=== PATIENT | female | born 1970 | race Caucasian/White ===

== ENCOUNTER 2018-08-07 12:50 | Emergency (ER) | payer OTHER, SELFPAY ==
[2018-08-07 12:51] VITALS: BP 116/80; PULSE 96; RESP 18; TEMP 36.6; O2SAT 97; BMI 27.3
--- NOTE | 2018-08-07 13:01 | RAD_ITS ---
STUDY: X-RAY - SACRUM/COCCYX REASON FOR EXAM: Female, 47 years old. Pain following a fall. TECHNIQUE: 3 view(s) of the sacrum and coccyx were obtained. COMPARISON: None. FINDINGS: Normal bilateral sacroiliac joints. Normal visualized sacral ala and fused sacral bodies. There is an anterior angulation of the coccygeal segments. Normal coccygeal segments. Degenerative changes of the symphysis pubis. The presacral soft tissue structures are unremarkable. RAD/Sacrum-Coccyx min 2 Views IMPRESSION: Normal x-rays of the sacrum and coccyx. Electronically Signed: Bernardo Barahona MD at 14:03 EST , Service support ,
--- NOTE | 2018-08-07 13:02 | ED.VISSUMM ---
- ER Visit Summary Date of Service: 08/07/18 Chief Complaint: Fall History of Present Illness: The patient is a 47 F slipped on concrete steps 1-1/2 hours ago and landed directly on her tailbone. She did not hit her head or lose consciousness. She denies any other injuries. She has moderate pain, worse with palpation. Physical Examination: Mild tenderness over the coccyx only. Overlying skin looks normal. No other back tenderness noted. Normal neurologic exam. Test Results: Coccyx x-rays negative for acute fracture Emergency Department Course and Treatment: Coccyx x-rays are negative. Pain was addressed. She looks well. No other injuries. Follow-up as needed. Treatment Plan: Disposition: Home stable Impression: Initial encounter coccyx contusion This note was generated with [employer] dictation software. It may contain incorrect words, spelling, and punctuation that were not noted in review of the chart prior to signing ED Disposition - Plan for ED Patient: Instructions: ED Contusion Sacrum Coccyx Prescriptions: Naproxen [Naprosyn] 500 mg PO BID #20 tablet Referrals: Ricky Rizzo MD [STAFF PHYSICIAN] -
[2018-08-07] MEDS: Naproxen 500 MG Tablet PO (13:07)
[2018-08-07 14:14] VITALS: BP 121/74; PULSE 78; RESP 17; O2SAT 98
== END 2018-08-07 14:15 | disposition home or self-care (01) ==
LOC: ED 13:07
PROVIDERS: Emergency Provider Emergency Medicine
DX: S30.0XXA Contusion of lower back and pelvis, initial encounter (principal); W01.198A Fall on same level from slipping, tripping and stumbling with subsequent striking against other object, initial encounter; Y93.9 Activity, unspecified; Y92.9 Unspecified place or not applicable; Y99.9 Unspecified external cause status; Z72.0 Tobacco use
CPT/HCPCS: 72220; 99283

== ENCOUNTER 2020-11-07 20:51 | Emergency (ER) | payer SELFPAY ==
[2020-11-07] VITALS (7 sets, daily range): BP systolic 123–128; BP diastolic 80–83; PULSE 72–86; RESP 18–24; TEMP 36.8; O2SAT 91–95; BMI 27.8
--- NOTE | 2020-11-07 21:04 | EKG12_ITS ---
Test Reason : SOB Blood Pressure : / mmHG Vent. Rate : 076 BPM Atrial Rate : 076 BPM P-R Int : 140 ms QRS Dur : 070 ms QT Int : 384 ms P-R-T Axes : 081 042 071 degrees QTc Int : 432 ms Normal sinus rhythm Normal ECG Confirmed by SERGO GARCIA, CAITLIN ([id number]), assignment desk editor STEFANI RODRIGUES ([id number]) on 11/08/2020 1:04:58 PM Referred By: CL Confirmed By:CAITLIN TROTTER MD
--- NOTE | 2020-11-07 21:11 | ED.RN ---
NO OLD EKGS IN MUSE
--- NOTE | 2020-11-07 21:17 | ED.VIS.DYS ---
HPI History of Present Illness Chief Complaint: Shortness of Breath Narrative Narrative: 50-year-old female presents with concern for cough and shortness of breath. States is been worsening over the past 1 week. States the cough is productive of yellow sputum. Denies any other constitutional symptoms. Denies chest pain, nausea, vomiting, abdominal pain. No sick contacts. Patient is a heavy smoker. PFSH PFSH no medical history Home Medications albuterol sulfate [Ventolin HFA] 1 - 2 puff INHALATION Q4H PRN PRN #1 inh 11/07/20 [Rx Last Taken Unknown] doxycycline monohydrate 100 mg PO BID #14 capsule 11/07/20 [Rx Last Taken Unknown] guaifenesin 1,200 mg PO BID #14 tab 11/07/20 [Rx Last Taken Unknown] prednisone 40 mg PO DAILY #10 tab 11/07/20 [Rx Last Taken Unknown] Allergy/AdvReac Type Severity Reaction Status Date / Time No Known Allergies Allergy Verified 11/07/20 20:52 no significant family history no surgical history Social History Smoking Status: Current every day smoker ROS ROS ED Constitutional Constitutional ED: Denies chills, fever(s) or sweats Eyes Eyes: Denies blurry vision, change in vision or diplopia ENT ENT ED: Denies rhinorrhea or sore throat Cardiovascular Cardiovascular: Denies chest pain, orthopnea, palpitations or racing heartbeat Respiratory/Chest Respiratory/Chest: Reports cough, dyspnea, dyspnea on exertion and sputum; Denies orthopnea Gastrointestinal Gastrointestinal: Denies abdominal pain, constipation, diarrhea, melena, nausea or vomiting Genitourinary Genitourinary ED: Denies dysuria, hematuria or urinary frequency Musculoskeletal Musculoskeletal: Denies arthralgias, myalgias or neck pain Integumentary Denies rash Neurologic Neurologic: Denies headache(s), paresthesias or weakness Psychiatric Psychiatric: Denies anxiety or depression Hematologic/Lymphatic Hematologic/Lymphatic: Denies easy bleeding or easy bruising Allergic/Immunologic Allergic/Immunologic ED: Denies mouth swelling or tongue swelling EXAM Physical Exam Const Vital Signs: 11/07/20 20:53 11/07/20 21:17 11/07/20 21:33 Temperature 98.3 F Temperature Source Oral Pulse Rate 85 72 Respiratory Rate 24 H 18 Respiratory Effort Normal Non-Labored Respiratory Depth Normal Respiratory Pattern Normal Normal Blood Pressure 128/80 H Blood Pressure Mean 96 Pulse Ox 92 Oxygen Delivery Method Room Air Room Air 11/07/20 21:36 Temperature Temperature Source Pulse Rate Respiratory Rate 20 H Respiratory Effort Non-Labored Short of Breath Respiratory Depth Normal Respiratory Pattern Tachypnea Blood Pressure Blood Pressure Mean Pulse Ox 93 Oxygen Delivery Method Room Air Positive well nourished and well developed General Appearance ED: well developed HEENT Reports TM's clear and moist mucous membranes normocephalic and atraumatic Tympanic Membrane ED: Yes TM's clear Eyes PERRL and EOMs intact bilaterally Neck no lymphadenopathy, supple and no JVD Chest Wall inspection of chest normal Resp Resp Narrative: Diffuse bilateral expiratory wheezing. Mild respiratory distress. Cardio regular rate, S1 normal heart sound, S2 normal heart sound and no murmurs Peripheral Pulses: pulses 2+ throughout GI soft to palpation, non-tender and non-distended Back/Spine no CVA tenderness and no thoracic nor lumbar tenderness Extremity normal to inspection General Extremety ED: Negative for edema or tenderness General Extremity: Negative for edema Neuro oriented x3, CN's II-XII intact bilaterally and no sensory deficits noted Sensorium / Orientation: alert Motor Exam: strength 5/5 throughout Psych mental status grossly normal Skin no rashes or lesions noted MDM MDM MDM Narrative Medical decision making narrative: Patient appears well and nontoxic. No hypoxemia. Patient given aerosol breathing treatments as well as Solu-Medrol. Chest x-ray interpreted by myself shows no evidence of infiltrate or cardiomegaly. Radiology concurs. Patient be given prednisone, albuterol inhaler, doxycycline, Tessalon Perles for home. Asked to return for new or worsening symptoms. Patient agreeable and discharged home in stable condition. Lab Data Attestation: I reviewed the patient's lab results. Labs: Laboratory Results - last 24 hr 11/07/20 11/07/20 11/07/20 21:15 21:15 21:45 WBC Cancelled 11.6 H Corrected WBC Cancelled RBC Cancelled 4.46 Hgb Cancelled 14.4 Hct Cancelled 43.4 MCV Cancelled 97.3 MCH Cancelled 32.3 H MCHC Cancelled 33.2 RDW Std Deviation Cancelled 41.7 RDW Coeff of Andie Cancelled 11.6 Plt Count Cancelled 417 MPV Cancelled 9.0 Immature Gran % (Auto) Cancelled 0.300 Neut % (Auto) Cancelled 65.6 Lymph % (Auto) Cancelled 21.1 Gibson % (Auto) Cancelled 10.5 H Eos % (Auto) Cancelled 2.1 Baso % (Auto) Cancelled 0.4 Absolute Neuts (auto) Cancelled 7.6 Absolute Lymphs (auto) Cancelled 2.45 Total Counted Cancelled Neutrophils % (Manual) Cancelled Band Neutrophils % Cancelled Lymphocytes % (Manual) Cancelled Monocytes % (Manual) Cancelled Eosinophils % (Manual) Cancelled Basophils % (Manual) Cancelled Metamyelocytes % Cancelled Myelocytes % Cancelled Promyelocytes % Cancelled Blast Cells % Cancelled Plasma Cell % (Manual) Cancelled Other Cells % Cancelled Nucleated RBC % Cancelled 0 Nucleated RBCs/100 WBC Cancelled Differential Comment Cancelled Diff Path Review Cancelled Hypersegmented Neuts Cancelled Atypical Lymphocytes Cancelled Reactive Lymphocytes Cancelled Smudge Cells Cancelled Toxic Granulation Cancelled Toxic Vacuolation Cancelled Dohle Bodies Cancelled Luann Rods Cancelled Platelet Estimate Cancelled Plt Morphology Comment Cancelled RBC Morphology Cancelled Polychromasia Cancelled Hypochromasia Cancelled Poikilocytosis Cancelled Basophilic Stippling Cancelled Anisocytosis Cancelled Microcytosis Cancelled Macrocytosis Cancelled Spherocytes Cancelled Sickle Cells Cancelled Target Cells Cancelled Tear Drop Cells Cancelled Ovalocytes Cancelled Stomatocytes Cancelled [place] Bodies Cancelled [place] Cells Cancelled Bite Cells Cancelled Crenated Cell Cancelled Acanthocytes (Spur) Cancelled Rouleaux Cancelled Schistocytes Cancelled Sodium 139 Potassium 3.7 Chloride 101 Carbon Dioxide 30.0 Anion Gap 8 BUN 5 L Creatinine 0.62 Estim Creat Clear Calc 84.90 Est GFR (MDRD) Af Amer 129 Est GFR (MDRD) Non-Af 107 BUN/Creatinine Ratio 8.0 L Glucose 134 H Calcium 8.8 Troponin I < 0.015 Radiography Chest X-Ray - ED: 1 View, Read by ED Physician, Read by Radiologist and Normal Diagnostic Testing: Radiology Impression Chest X-Ray 11/07/20 21:49 IMPRESSION: No acute cardiopulmonary abnormality. at 2204 Reported and signed by: Anne Sorensen MD Electronically Signed: Anne Sorensen MD at 22:04 EDT Tel , Service support , Rhythm Strip Rhythm Strip: Sinus Rhythm Rate: 76 Ectopy: None EKG Initial EKG: Attestation: I personally reviewed and interpreted this EKG as follows: Interpretation: Sinus Rhythm and No Acute Injury Pattern Comments: Normal sinus rhythm at 76 bpm. VA interval 140 ms. QTC of 432 ms. No evidence of ST elevation or depression at this time. Discharge Plan Triage Chief Complaint: Shortness of Breath ED Provider: Rogelio Smith Dx/Rx/DC Orders Clinical Impression: Acute exacerbation of chronic obstructive pulmonary disease, Bronchitis Instructions: ED COPD Flare Prescriptions: New prednisone 20 mg tablet 40 mg PO DAILY Qty: 10 RF: 0 doxycycline monohydrate 100 mg capsule 100 mg PO BID Qty: 14 RF: 0 albuterol sulfate [Ventolin HFA] 90 mcg/actuation HFA aerosol inhaler 1 - 2 puff inhalation Q4H PRN PRN (Reason: Wheezing) Qty: 1 RF: 0 guaifenesin 1,200 mg tablet extended release 12hr 1,200 mg PO BID Qty: 14 RF: 0 Primary Care Provider: Care Physician,No Primary Referrals: Lloyd Cartagena MD [NON-STAFF] - 3-5 Days Care Physician,No Primary [Primary Care Provider] - Disposition Disposition: Home, self care
[2020-11-07] MEDS: MethylPREDNISolone 125 MG/2 ML Vial IV (21:25)
[2020-11-07] MEDS: Ipratropium/Albuterol Sulfate 3 ML AMPUL.NEB INHALATION (21:33)
[2020-11-07] MEDS: Albuterol 2.5 MG/3 ML VIAL.NEB. INHALATION (21:33)
--- NOTE | 2020-11-07 21:49 | RAD_ITS ---
HISTORY: dyspnea ADDITIONAL HISTORY: None provided. EXAMINATION/TECHNIQUE: XR Chest 1 View AP/PA Number of images including paperwork: 1 COMPARISON: None FINDINGS: LUNGS AND PLEURA: No consolidation, mass or pleural effusion. CARDIAC SILHOUETTE: Unremarkable. MEDIASTINUM AND GUME: Unremarkable. UPPER ABDOMEN: Unremarkable. SKELETON AND SOFT TISSUES: No acute skeletal findings. Degenerative changes. OTHER DEVICES AND HARDWARE: None. RAD/Chest 1 View (Portable) IMPRESSION: No acute cardiopulmonary abnormality. at 2204 Reported and signed by: Anne Sorensen MD Electronically Signed: Anne Sorensen MD at 22:04 EDT Tel , Service support ,
[2020-11-07 21:55] LABS: Absolute Lymphocyte Count 2.45 X10^3/uL (0.83-4.51); Absolute Neutrophil Count 7.6 X10^3/uL (2.0-7.7); Basophil# 0.05 X10^3/uL; Basophil% 0.4 % (0-1); Eosinophil# 0.24 X10^3/uL; Eosinophils% 2.1 % (0-5); Hematocrit 43.4 % (37-47); Hemoglobin 14.4 g/dL (12.0-15.0); Lymphocyte # 2.45 X10^3/ul (0.83-4.51); Lymphocyte % 21.1 % (19-41); Mean Corp Hgb Conc 33.2 g/dL (32-36); Mean Corpuscular Hgb 32.3 pg (27.0-32.0); Mean Corpuscular Volume 97.3 fL (81-99); Monocyte# 1.22 X10^3/uL; Monocyte% 10.5 % (0-10); NRBC Flagged by Analyzer 0 % (0-5); Neutrophil # 7.62 X10^3/uL (2.7-7.7); Neutrophil % 65.6 % (47-70); Platelet Count 417 K/mm3 (150-450); RBC Distribution Width CV 11.6 % (11.6-14.6); RBC Distribution Width SD 41.7 fl (35.1-43.9); Red Blood Count 4.46 M/mm3 (4.2-5.4); White Blood Count 11.6 K/mm3 (4.4-11.0)
[2020-11-07 21:56] LABS: Anion Gap 8 (5-15); BUN 5 mg/dL (7-18); Calcium,Total 8.8 mg/dL (8.5-10.1); Chloride 101 mmol/L (98-107); Creatinine, Serum 0.62 mg/dL (0.55-1.02); EST Glomerular Filtration Rate 107 mL/min (>60); Est Glom Filt Rate - Afr Amer 129 mL/min (>60); Glucose 134 mg/dL (74-106); Potassium 3.7 mmol/L (3.5-5.1); Sodium Level 139 mmol/L (136-145)
== END 2020-11-07 22:51 | disposition home or self-care (01) ==
PROVIDERS: Emergency Provider Emergency Medicine
DX: J44.1 Chronic obstructive pulmonary disease with (acute) exacerbation (principal); J40 Bronchitis, not specified as acute or chronic; F17.200 Nicotine dependence, unspecified, uncomplicated; Z79.52 Long term (current) use of systemic steroids; Z79.899 Other long term (current) drug therapy
CPT/HCPCS: 71045; 80048; 84484; 85025; 87426; 93005; 94640; 96374; 99251; 99285; A4216; G0463